=== PATIENT | male | born 1985 | race Caucasian/White ===

== ENCOUNTER 2018-05-14 18:15 | Emergency (ER) | payer BC ==
[2018-05-14 18:57] VITALS: BP 170/109; PULSE 73; RESP 18; TEMP 98.7
[2018-05-14] MEDS ORDERED: IBUPROFEN 600 MG TAB PO STA (19:10)
--- NOTE | 2018-05-14 19:33 | XR ---
EXAMINATION TYPE: XR knee complete RT DATE OF EXAM: 05/14/2018 COMPARISON: NONE HISTORY: Knee pain TECHNIQUE: 3 views FINDINGS: There is no fracture nor dislocation. Joint spaces are normal. There is no sign of joint ef fusion. IMPRESSION: Negative right knee exam.
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
== END 2018-05-14 20:49 | disposition home or self-care (01) ==
LOC: EC 18:15
DX: S83.91XA Sprain of unspecified site of right knee, initial encounter (principal); F17.200 Nicotine dependence, unspecified, uncomplicated; X58.XXXA Exposure to other specified factors, initial encounter
CPT/HCPCS: 99283

== ENCOUNTER 2020-11-09 16:45 | Emergency (ER) | payer OTHER ==
[2020-11-09 18:23] VITALS: RESP 16
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
[2020-11-09 19:18] LABS: Appearance,Urine Cloudy (Clear); Bacteria,Urine Rare /hpf; Bilirubin,Urine Negative (Negative); Blood,Urine Negative (Negative); Color,Urine Yellow; Glucose,Urine (UA) Negative (Negative); Ketones,Urine Negative (Negative); Leukocyte Esterase,Urine Negative (Negative); Mucus,Urine Rare /hpf; Nitrite,Urine Negative (Negative); Protein,Urine Negative (Negative); RBC,Urine 2 /hpf (0-5); Specific Gravity,Urine 1.018 (1.001-1.035); Urobilinogen,Urine <2.0 mg/dL (<2.0); WBC,Urine 8 /hpf (0-5)
--- NOTE | 2020-11-09 20:14 | XR ---
Result: History: Rib pain status post injury. Comparison: None available. Technique: 4 views of the left ribs with PA chest. Findings: There is no definite displaced rib fracture. The visualized osseous structures are in anatomic align ment. The cardiac silhouette is within normal limits for size and appearance. The lungs are clear without evidence of focal consolidation, pleural effusion, pulmonary edema, or pneumothorax. Impression: 1. No definite displaced rib fracture is seen. 2. No acute cardiopulmonary abnormality.
--- NOTE | 2020-11-09 20:16 | XR ---
RESULT: HISTORY: pain TECHNIQUE: 5 views of cervical spine were obtained. COMPARISON: None. FINDINGS: There is no acute fracture or subluxation. The vertebral body and disc heights are grossly maintained . No significant foramina stenosis within the limitations of the study. The C1-C2 alignment is within normal limits as seen on the odontoid view. No significant prevertebral soft tissue abnormality. IMPRESSION: No significant osseous abnormality.
[2020-11-09] MEDS ORDERED: KETOROLAC 15 MG/ML 1 ML VIAL IM STA (20:32)
[2020-11-09] MEDS ORDERED: hydrALAZINE HCL 20 MG/ML 1 ML VIAL IVP STA (20:53)
[2020-11-09] MEDS ORDERED: SODIUM CHLORIDE 0.9% 500 ML 500 ML IV STA (21:27)
[2020-11-09 21:38] LABS: ALT 48 U/L (4-49); AST 62 U/L (17-59); African American GFR (CKD) >90 (>60 ml/min/1.73 sqM); Albumin 4.8 g/dL (3.5-5.0); Alkaline Phosphatase 87 U/L (38-126); Anion Gap 7 mmol/L; Basophils # (A) 0.1 k/uL (0-0.2); Basophils % (A) 1 %; Blood Urea Nitrogen 14 mg/dL (9-20); Calcium 9.5 mg/dL (8.4-10.2); Carbon Dioxide 28 mmol/L (22-30); Chloride 106 mmol/L (98-107); Eosinophils # (A) 0.3 k/uL (0-0.7); Eosinophils % (A) 3 %; Glucose 97 mg/dL (74-99); HCT 46.5 % (39.0-53.0); Lymphocytes # (A) 3.4 k/uL (1.0-4.8); Lymphocytes % (A) 33 %; MCH 30.4 pg (25.0-35.0); MCHC 34.3 g/dL (31.0-37.0); MCV 88.5 fL (80.0-100.0); Mean Platelet Volume 8.1; Monocytes # (A) 0.8 k/uL (0-1.0); Monocytes % (A) 8 %; Neutrophils # (A) 5.2 k/uL (1.3-7.7); Neutrophils % (A) 52 %; Non-African American GFR(CKD) >90 (>60 ml/min/1.73 sqM); Platelet Count 271 k/uL (150-450); Potassium 4.1 mmol/L (3.5-5.1); RBC 5.25 m/uL (4.30-5.90); RDW 12.8 % (11.5-15.5); Sodium 141 mmol/L (137-145); Total Bilirubin 0.5 mg/dL (0.2-1.3); Total Protein 8.5 g/dL (6.3-8.2); WBC 10.1 k/uL (3.8-10.6)
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
[2020-11-09] MEDS ORDERED: amLODIPine 5 MG TAB PO STA (22:29)
[2020-11-09 22:49] VITALS: BP 188/95; PULSE 58; TEMP 98.1
== END 2020-11-09 22:45 | disposition home or self-care (01) ==
LOC: EC 16:45
DX: S22.42XA Multiple fractures of ribs, left side, initial encounter for closed fracture (principal); I10 Essential (primary) hypertension; F17.290 Nicotine dependence, other tobacco product, uncomplicated; V43.52XA Car driver injured in collision with other type car in traffic accident, initial encounter; Y92.410 Unspecified street and highway as the place of occurrence of the external cause
CPT/HCPCS: 36415; 80053; 85025; 81001; 71101; 72050; 71260; 74177; 99284; 96374; 96372; J0360; J1885; Q9967